=== PATIENT | male | born 1975 | race Caucasian/White ===

== ENCOUNTER 2016-06-21 08:36 | Emergency (ER) | payer BC ==
[2016-06-21] MEDS ORDERED: Aspirin 81 MG Tab.Chew PO ONE (08:41)
[2016-06-21] MEDS ORDERED: Sodium Chloride 0.9% 10 ML Syringe FLUSH PRN (08:41)
[2016-06-21] MEDS ORDERED: Sodium Chloride 0.9% 2.5 ML Syringe FLUSH PRN (08:41)
--- NOTE | 2016-06-21 08:43 | EDM.PDOC ---
[id number] Information: Reports: Patient History Limitations: Reports: No Limitations chest Pain Score (Numeric/FACES): 6 - Related Data Allergies Allergy/AdvReac Type Severity Reaction Status Date / Time No Known Allergies Allergy Verified 06/21/16 08:38 Home Meds: Home Meds Citalopram Hydrobromide [Celexa] 40 mg PO DAILY 06/21/16 [History] lamoTRIgine [Lamictal] 200 mg PO DAILY 06/21/16 [History] ED ROS GENERAL - Review of Systems Review Of Systems: See Below (History of present illness) ED EXAM, GENERAL - Physical Exam Exam: See Below (History of present illness) Course - Vital Signs Last Recorded V/S: Last Vital Signs Temp 36.6 C 06/21/16 12:20 Pulse 80 06/21/16 14:29 Resp 18 06/21/16 14:29 BP 124/78 06/21/16 14:29 Pulse Ox 97 06/21/16 14:29 - Orders/Labs/Meds Labs: Laboratory Tests 06/21/16 06/21/16 06/21/16 Range/Units 08:44 08:44 08:44 WBC 7.65 (4.0-11.0) K/uL RBC 5.41 (4.50-5.90) M/uL Hgb 16.2 (13.0-17.0) g/dL Hct 48.0 (38.0-50.0) % MCV 88.7 (80.0-98.0) fL MCH 29.9 (27.0-32.0) pg MCHC 33.8 (31.0-37.0) g/dL RDW Std Deviation 41.5 (28.0-62.0) fl RDW Coeff of Grant 13 (11.0-15.0) % Plt Count 219 (150-400) K/uL MPV 10.50 (7.40-12.00) fL Neut % (Auto) 64.4 (48.0-80.0) % Lymph % (Auto) 24.2 (16.0-40.0) % Ste[place]s % (Auto) 8.6 (0.0-15.0) % Eos % (Auto) 2.0 (0.0-7.0) % Baso % (Auto) 0.8 (0.0-1.5) % Neut # (Auto) 4.9 (1.4-5.7) K/uL Lymph # (Auto) 1.9 (0.6-2.4) K/uL Stearns # (Auto) 0.7 (0.0-0.8) K/uL Eos # (Auto) 0.2 (0.0-0.7) K/uL Baso # (Auto) 0.1 (0.0-0.1) K/uL Nucleated RBC % 0.0 /100WBC Nucleated RBCs # 0 K/uL Sodium 140 (136-146) mmol/L Potassium 4.1 (3.5-5.1) mmol/L Chloride 107 (98-110) mmol/L Carbon Dioxide 25 (21-31) mmol/L BUN 17 (6.0-23.0) mg/dL Creatinine 0.9 (0.6-1.5) mg/dL Est Cr Clr Drug Dosing 113.78 mL/min Estimated GFR (MDRD) > 60.0 ml/min Glucose 101 (60-110) mg/dL Calcium 9.3 (8.8-10.8) mg/dL Total Bilirubin 0.5 (0.1-1.5) mg/dL AST 24 (5-40) IU/L ALT 30 (8-54) IU/L Alkaline Phosphatase 65 (40-150) Troponin I < 0.10 (0.0-0.29) NG/ML Total Protein 6.8 (6.0-8.0) g/dL Albumin 4.2 (3.5-5.0) g/dL Globulin 2.6 (2.0-3.5) g/dL Albumin/Globulin Ratio 1.6 (1.3-2.8) Lipase (7-80) U/L Urine Color Urine Appearance Urine pH (5.0-8.0) Ur Specific [place] (1.001-1.035) Urine Protein (NEGATIVE) mg/dL Urine Glucose (UA) (NEGATIVE) mg/dL Urine Ketones (NEGATIVE) mg/dL Urine Occult Blood (NEGATIVE) Urine Nitrite (NEGATIVE) Urine Bilirubin (NEGATIVE) Urine Urobilinogen (<2.0) EU/dL Ur Leukocyte Esterase (NEGATIVE) Urine RBC (0-2/HPF) Urine WBC (0-5/HPF) Ur Epithelial Cells (NONE-FEW) Urine Bacteria (NEGATIVE) 06/21/16 06/21/16 Range/Units 08:56 09:54 WBC (4.0-11.0) K/uL RBC (4.50-5.90) M/uL Hgb (13.0-17.0) g/dL Hct (38.0-50.0) % MCV (80.0-98.0) fL MCH (27.0-32.0) pg MCHC (31.0-37.0) g/dL RDW Std Deviation (28.0-62.0) fl RDW Coeff of Grant (11.0-15.0) % Plt Count (150-400) K/uL MPV (7.40-12.00) fL Neut % (Auto) (48.0-80.0) % Lymph % (Auto) (16.0-40.0) % Stearns % (Auto) (0.0-15.0) % Eos % (Auto) (0.0-7.0) % Baso % (Auto) (0.0-1.5) % Neut # (Auto) (1.4-5.7) K/uL Lymph # (Auto) (0.6-2.4) K/uL Ste[place]s # (Auto) (0.0-0.8) K/uL Eos # (Auto) (0.0-0.7) K/uL Baso # (Auto) (0.0-0.1) K/uL Nucleated RBC % /100WBC Nucleated RBCs # K/uL Sodium (136-146) mmol/L Potassium (3.5-5.1) mmol/L Chloride (98-110) mmol/L Carbon Dioxide (21-31) mmol/L BUN (6.0-23.0) mg/dL Creatinine (0.6-1.5) mg/dL Est Cr Clr Drug Dosing mL/min Estimated GFR (MDRD) ml/min Glucose (60-110) mg/dL Calcium (8.8-10.8) mg/dL Total Bilirubin (0.1-1.5) mg/dL AST (5-40) IU/L ALT (8-54) IU/L Alkaline Phosphatase (40-150) Troponin I (0.0-0.29) NG/ML Total Protein (6.0-8.0) g/dL Albumin (3.5-5.0) g/dL Globulin (2.0-3.5) g/dL Albumin/Globulin Ratio (1.3-2.8) Lipase 22 (7-80) U/L Urine Color YELLOW Urine Appearance CLEAR Urine pH 6.0 (5.0-8.0) Ur Specific [place] 1.020 (1.001-1.035) Urine Protein NEGATIVE (NEGATIVE) mg/dL Urine Glucose (UA) NEGATIVE (NEGATIVE) mg/dL Urine Ketones NEGATIVE (NEGATIVE) mg/dL Urine Occult Blood NEGATIVE (NEGATIVE) Urine Nitrite NEGATIVE (NEGATIVE) Urine Bilirubin NEGATIVE (NEGATIVE) Urine Urobilinogen 0.2 (<2.0) EU/dL Ur Leukocyte Esterase NEGATIVE (NEGATIVE) Urine RBC NONE SEEN (0-2/HPF) Urine WBC NONE SEEN (0-5/HPF) Ur Epithelial Cells RARE (NONE-FEW) Urine Bacteria RARE (NEGATIVE) Meds: Medications Discontinued Medications Generic Name Dose Route Start Last Admin Trade Name Andrewq PRN Reason Stop Dose Admin Aspirin 324 mg 06/21/16 08:41 06/21/16 08:58 Aspirin PO 06/21/16 08:42 324 mg ONETIME ONE Administration Al Hydroxide/Mg Hydroxide 15 0 ml 06/21/16 11:46 06/21/16 11:58 ml/ Lidocaine HCl 5 ml PO 06/21/16 11:47 1 each ONETIME ONE Administration Iopamidol 100 ml 06/21/16 09:41 06/21/16 10:05 Isovue Multipack-370 (76%) IVPUSH 06/21/16 09:42 100 ml ONETIME STA Administration Ketorolac Tromethamine 30 mg 06/21/16 08:58 06/21/16 09:50 Toradol IVPUSH 06/21/16 08:59 30 mg ONETIME ONE Administration Sodium Chloride 10 ml 06/21/16 08:41 Saline Flush FLUSH ASDIRECTED PRN Keep Vein Open Sodium Chloride 2.5 ml 06/21/16 08:41 Saline Flush FLUSH ASDIRECTED PRN Keep Vein Open Departure - Departure Time of Disposition: 14:20 Disposition: Home, Self-Care 01 Condition: Good Clinical Impression: Gastritis Instructions: Gastritis, Adult, [id number], Heartburn, [id number] Referrals: PCP,None [Primary Care Provider] - Forms: ED Department Discharge Additional Instructions: Your findings today suggest that you have gastritis. This is irritation of the stomach commonly from excessively acidic environment in your stomach. Take Prilosec [id number] and avoid tobacco caffeine alcohol spicy foods and late night.. Followup with your DrVinayak in one day and return immediately for new severe or worsening symptoms ED HISTORY OF PRESENT ILLNESS - General Chief Complaint: Chest Pain Stated Complaint: CHEST PAIN Time Seen by Provider: 06/21/16 08:41 Source of Information: Reports: Patient History Limitations: Reports: No Limitations - History of Present Illness INITIAL COMMENTS - FREE TEXT/NARRATIVE: HISTORY AND PHYSICAL: History of present illness: [40-year-old male complaining of intermittent chest pain for 3 days and epigastric discomfort. Pain is not worse with breathing or movement. No nausea vomiting or diaphoresis. No exertional symptoms] Review of systems: As per history of present illness and below otherwise all systems reviewed and negative. Past medical history: As per history of present illness and as reviewed below otherwise noncontributory. Surgical history: As per history of present illness and as reviewed below otherwise noncontributory. Social history: No reported history of drug or alcohol abuse. Family history: As per history of present illness and as reviewed below otherwise noncontributory. Physical exam: HEENT: Atraumatic, normocephalic, pupils reactive, negative for conjunctival pallor or scleral icterus, mucous membranes moist, throat clear, neck supple, nontender, trachea midline. Lungs: Clear to auscultation, breath sounds equal bilaterally, chest nontender. Heart: S1S2, regular, negative for clicks, rubs, or JVD. Abdomen: Soft, nondistended, nontender. Negative for masses or hepatosplenomegaly. Negative for costovertebral tenderness. Pelvis: Stable nontender. Genitourinary: Deferred. Rectal: Deferred. Extremities: Atraumatic, negative for cords or calf pain. Neurovascular unremarkable. Neuro: Awake, alert, oriented. Cranial nerves grossly unremarkable. Cerebellum unremarkable. Motor and sensory unremarkable throughout. Exam nonfocal. Diagnostics: [] Therapeutics: [] Impression: [] Plan: [Negative workup well-appearing patient signs and symptoms consistent with gastritis. No clinical evidence of ACS/PE or dissection no further workup or treatment indicated patient agrees with outpatient follow-up with PCP strict return precautions given] Definitive disposition and diagnosis as appropriate pending reevaluation and review of above. - Related Data Allergies/ADRs: Allergies Allergy/AdvReac Type Severity Reaction Status Date / Time No Known Allergies Allergy Verified 06/21/16 08:38 Home Meds: Home Meds Citalopram Hydrobromide [Celexa] 40 mg PO DAILY 06/21/16 [History] lamoTRIgine [Lamictal] 200 mg PO DAILY 06/21/16 [History]
[2016-06-21] MEDS ORDERED: Ketorolac 30 MG/ML SDV IVPUSH ONE (08:58)
--- NOTE | 2016-06-21 09:26 | CR ---
EXAMINATION: Two-view chest (PA and Lateral views). HISTORY: Chest pain. FINDINGS: The trachea is midline. The cardiomediastinal silhouette is within normal limits. No pulmonary infil trates, effusions or pneumothorax. Osseous structures appear unremarkable. IMPRESSION: No acute cardiopulmonary process.
[2016-06-21 09:33] LABS: CHLORIDE,CL 107 mmol/L (98-110); SODIUM,NA 140 mmol/L (136-146)
[2016-06-21] MEDS ORDERED: Iopamidol 755 MG/ML 500 ML Multipack Bottle IVPUSH STA (09:41)
--- NOTE | 2016-06-21 11:11 | CT ---
EXAMINATION: CTA chest, abdomen, and pelvis HISTORY: Pain COMPARISON: None TECHNIQUE: Axial CT images obtained through the chest, abdomen and pelvis without contrast. Axial CT images obtained through the chest, abdomen, and pelvis following the administration of 100 mL of Is ovue-370. Coronal and sagittal reconstructions obtained. FINDINGS: Chest: The lungs are clear without focal consolidation. No pleural effusion or pneumothorax. Mild de pendent atelectasis. The thoracic aorta is normal in caliber. The main and central pulmonary arterie s appear patent. No mediastinal or hilar lymphadenopathy. The heart is normal in size without a lavon cardial effusion. The central airways are clear. Abdomen: Tiny hepatic cysts are noted. The spleen, adrenal glands, and pancreas appear normal. The g allbladder is normal. There is no bulky retroperitoneal lymphadenopathy or abdominal ascites. The kidneys enhance and function symmetrically without evidence of obstructive uropathy. The abdomin al aorta is normal in caliber. There are 2 right renal arteries noted. Pelvis: The large and small bowel are normal in caliber without evidence of obstruction. No focal pe ricolonic inflammation or stranding. Minimal diverticula noted. The appendix appears normal. No bulk y pelvic lymphadenopathy or free pelvic fluid. The urinary bladder is normal. No suspicious osseous abnormalities. IMPRESSION: 1. No acute findings demonstrated within the chest, abdomen, or pelvis. 2. The thoracic and abdominal aorta appear normal caliber and intact.
[2016-06-21] MEDS ORDERED: Alum Hydrox/Mag Hydrox/Simeth 15 ML, Lidocaine 2% 5 ML PO ONE ×2 (11:46)
[2016-06-21 14:43] VITALS: BP 124/78
== END 2016-06-21 14:29 | disposition home or self-care (01) ==
LOC: MW.ED 08:36
DX: K29.70 Gastritis, unspecified, without bleeding (principal); Z79.899 Other long term (current) drug therapy
CPT/HCPCS: 36415; 71010; 71275; 74177; 80053; 81001; 83690; 84484; 85025; 93005; 96374; 99285; A9270; J1885; Q9967; 99284

== ENCOUNTER 2016-11-04 07:10 | Emergency (ER) | payer BC ==
--- NOTE | 2016-11-04 07:37 | EDM.PDOC ---
ED HPI GENERAL MEDICAL PROBLEM - General Chief Complaint: Respiratory Problem Stated Complaint: ILL, COUGH Time Seen by Provider: 11/04/16 07:29 - History of Present Illness INITIAL COMMENTS - FREE TEXT/NARRATIVE: HISTORY AND PHYSICAL: History of present illness: The patient is a 41-year-old male with no stated pulmonary cardiac problems who presents with complaints of these 5 days of cough and spastic cough, lightheadedness, nasal congestion and drainage which worsened over the last 24- 36 hours. He said he was able to go to work up until yesterday and he had to call off because he felt so off balance due to the pressure in his ears and the sinus congestion. He's had no vomiting or diarrhea except some posttussive vomiting. He says he has no chest pain no abdominal pain only feels short of breath when he is having a coughing spasm. When he is just sitting and not coughing he is not short of breath. Patient says he is pushing hydration and has not used any xcnw-sfo-wwrxatt meds. Patient is a smoker. She says that he does have a lot of postnasal drip which triggers his cough. He does not have a sore throat or ear pain just feels pressure in his ears and the off-balance feeling. He has not fallen. Review of systems: As per history of present illness and below otherwise all systems reviewed and negative. Past medical history: As per history of present illness and as reviewed below otherwise noncontributory. Surgical history: As per history of present illness and as reviewed below otherwise noncontributory. Social history: No reported history of drug or alcohol abuse. Family history: As per history of present illness and as reviewed below otherwise noncontributory. Physical exam: General: Well-developed well-nourished man who is nontoxic and speaking clearly and easily in the ED. He has a nasal quality to his voice HEENT: Atraumatic, normocephalic, pupils reactive, negative for conjunctival pallor or scleral icterus, mucous membranes moist, throat clear, neck supple, nontender, trachea midline. There is no cervical adenopathy or nuchal rigidity and TMs are normal bilaterally, there is some mild sinus tenderness on palpation. Lungs: Clear to auscultation, breath sounds equal bilaterally, chest nontender. Wheezing or stridor no worker breathing Heart: S1S2, regular, negative for clicks, rubs, or JVD. Abdomen: Soft, nondistended, nontender. NABS. Pelvis: Stable nontender. Genitourinary: Deferred. Rectal: Deferred. Extremities: Atraumatic, negative for cords or calf pain. Neurovascular unremarkable. Neuro: Awake, alert, oriented. Cranial nerves II through XII unremarkable. Cerebellum unremarkable. Motor and sensory unremarkable throughout. Exam nonfocal. Diagnostics: Chest x-ray influenza swab orthostatic vitals Therapeutics: SPacer teaching Impression: Sinusitis/bronchitis Definitive disposition and diagnosis as appropriate pending reevaluation and review of above. - Related Data Allergies Allergy/AdvReac Type Severity Reaction Status Date / Time No Known Allergies Allergy Verified 11/04/16 07:27 Home Meds: Home Meds Citalopram Hydrobromide [Celexa] 40 mg PO DAILY 06/21/16 [History] lamoTRIgine [Lamictal] 200 mg PO DAILY 06/21/16 [History] Past Medical History Psychiatric History: Reports: Other (See Below) Other Psychiatric History: mood disorder - Infectious Disease History Infectious Disease History: Reports: Chicken Pox - Past Surgical History GI Surgical History: Reports: Hernia, Inguinal, Hernia Repair/Other Musculoskeletal Surgical History: Reports: Shoulder Surgery Social & Family History - Family History Family Medical History: Noncontributory - Tobacco Use Smoking Status *Q: Current Every Day Smoker Years of Tobacco use: 22 Packs/Tins Daily: 1 - Caffeine Use Caffeine Use: Reports: Soda - Recreational Drug Use Recreational Drug Use: No ED ROS GENERAL - Review of Systems Review Of Systems: ROS reveals no pertinent complaints other than HPI. ED EXAM, GENERAL - Physical Exam Exam: See Below (See dictation) Course - Vital Signs Last Recorded V/S: Last Vital Signs Temp 36.2 C 11/04/16 07:24 Pulse 69 11/04/16 07:24 Resp 20 11/04/16 07:24 BP 129/80 11/04/16 07:24 Pulse Ox 96 11/04/16 07:24 Orthostatic Blood Pressure [ 114/78 Standing] Orthostatic Blood Pressure [ 98/56 Sitting] Orthostatic Blood Pressure [ 124/71 Supine] - Orders/Labs/Meds Orders: Active Orders 24 hr Category Date Time Status Communication Order [RC] STAT Care 11/04/16 08:38 Ordered Orthostatic Vital Signs [RC] ASDIRECTED Care 11/04/16 07:34 Active Chest 2V [CR] Stat Exams 11/04/16 07:33 Taken Departure - Departure Time of Disposition: 08:39 Disposition: Home, Self-Care 01 Condition: Good Clinical Impression: Bronchitis Sinusitis Qualifiers: Sinusitis location: unspecified location Chronicity: acute Recurrence: not specified as recurrent Qualified Code(s): J01.90 - Acute sinusitis, unspecified - Discharge Information Referrals: PCP,None [Primary Care Provider] - Forms: ED Department Discharge Additional Instructions: The following information is given to patients seen in the emergency department who are being discharged to home. This information is to outline your options for follow-up care. We provide all patients seen in our emergency department with a follow-up referral. The need for follow-up, as well as the timing and circumstances, are variable depending upon the specifics of your emergency department visit. If you don't have a primary care physician on staff, we will provide you with a referral. We always advise you to contact your personal physician following an emergency department visit to inform them of the circumstance of the visit and for follow-up with them and/or the need for any referrals to a consulting specialist. The emergency department will also refer you to a specialist when appropriate. This referral assures that you have the opportunity for followup care with a specialist. All of these measure are taken in an effort to provide you with optimal care, which includes your followup. Under all circumstances we always encourage you to contact your private physician who remains a resource for coordinating your care. When calling for followup care, please make the office aware that this follow-up is from your recent emergency room visit. If for any reason you are refused follow-up, please contact the [facility] emergency department at and ask to speak to the emergency department charge nurse. [address] [place] [address] [facility] Primary care- Internal Medicine and Family [address] [address] Push hydration and rest. Please use all medications as prescribed and please connect with your provider at [facility] for follow-up in the next few days or one of our providers in our clinic. Return to ER as needed and as discussed. Please refrain from and/or stop smoking - My Orders Last 24 Hours: My Active Orders 11/04/16 07:33 Chest 2V [CR] Stat 11/04/16 07:34 Orthostatic Vital Signs [RC] ASDIRECTED 11/04/16 08:38 Communication Order [RC] STAT - Assessment/Plan Last 24 Hours: My Active Orders 11/04/16 07:33 Chest 2V [CR] Stat 11/04/16 07:34 Orthostatic Vital Signs [RC] ASDIRECTED 11/04/16 08:38 Communication Order [RC] STAT
[2016-11-04 09:09] VITALS: BP 106/75
--- NOTE | 2016-11-04 10:35 | CR ---
EXAM DATE: 11/04/16 PATIENT'S AGE: 41 Patient: ZACHARY SALDIVAR Facility: [place], [place] Site . Site : [id number] Study: XRay Chest [id number]/14/2017 8:24:54 AM Ordering Physician: Braulio Rodriguez Final Report: INDICATION: pain/shortness of breath INDICATION: Pain. Shortness of breath. TECHNIQUE: Chest 2 views. COMPARISON: 06/21/2016. FINDINGS: Cardiovascular and mediastinum: Heart size and vasculature are normal in caliber and appearance. Mediastinum is within normal limits. Lungs and pleural spaces: Lungs are clear. No sign of infiltrate or mass. No sign of pleural effusion. No pneumothorax. Bones and soft tissues: No significant findings. IMPRESSION: Lungs are clear. Dictated by Ganesh Hudson MD @ 11/04/2016 8:26:23 AM Dictated by: Ganesh Hudson MD @ 11/04/2016 08:26:30 (Electronic Signature) Report Signed by Proxy. ROMI
== END 2016-11-04 08:48 | disposition home or self-care (01) ==
LOC: MW.ED 07:10
DX: J40 Bronchitis, not specified as acute or chronic (principal); J01.90 Acute sinusitis, unspecified; F17.210 Nicotine dependence, cigarettes, uncomplicated; Z79.899 Other long term (current) drug therapy
CPT/HCPCS: 71020; 71020-26; 87804; 99283; 99284

== ENCOUNTER 2017-01-18 09:26 | Emergency (ER) | payer BC ==
--- NOTE | 2017-01-18 09:39 | EDM.PDOCBH ---
ED HPI GENERAL MEDICAL PROBLEM - General Chief Complaint: Behavioral/Psych Stated Complaint: MENTAL HEALTH Time Seen by Provider: 01/18/17 09:35 Source of Information: Reports: Patient History Limitations: Reports: No Limitations - History of Present Illness INITIAL COMMENTS - FREE TEXT/NARRATIVE: History of present illness: []An employee of [employer] called stating that Francisco would be arriving to the ER with suicidal intentions after she was unable to do a safety plan with him. He was brought in by a friend. Patient states he's suffer from bipolar disease for 25 years with 3 previous suicide attempts and has been on his meds without missing doses. He states they just aren't enough anymore. For the last 5-6 days, patient has been in bed and has been contemplating suicide by drinking antifreeze. His attempts in the past include using nitrogen gas in a confined space, overdose was multiple pills and cutting his wrist. Review of systems: As per history of present illness and below otherwise all systems reviewed and negative. Past medical history: As per history of present illness and as reviewed below otherwise noncontributory. Surgical history: As per history of present illness and as reviewed below otherwise noncontributory. Social history: No reported history of drug or alcohol abuse. Family history: As per history of present illness and as reviewed below otherwise noncontributory. Physical exam: General: Well developed, well nourished in NAD HEENT: , normocephalic, pupils reactive, negative for conjunctival pallor or scleral icterus, mucous membranes moist, throat clear, neck supple, nontender, trachea midline. Lungs: Clear to auscultation, breath sounds equal bilaterally, chest nontender. Heart: S1S2, regular, negative for clicks, rubs, or JVD. Abdomen: Soft, nondistended, nontender. Negative for masses or hepatosplenomegaly. Negative for costovertebral tenderness. Pelvis: Stable nontender. Genitourinary: Deferred. Rectal: Deferred. Extremities: Atraumatic, negative for cords or calf pain. Neurovascular unremarkable. Neuro: Awake, alert, oriented. Cranial nerves II through XII unremarkable. Cerebellum unremarkable. Motor and sensory unremarkable throughout. Exam nonfocal. Diagnostics: []Acute check screening labs done all negative Therapeutics: [] Impression: []Suicidal ideation Plan: []Transfer to [facility] from psychiatry accepts patient Definitive disposition and diagnosis as appropriate pending reevaluation and review of above. - Related Data Allergies Allergy/AdvReac Type Severity Reaction Status Date / Time No Known Allergies Allergy Verified 11/04/16 07:27 Home Meds: Home Meds Citalopram Hydrobromide [Celexa] 40 mg PO DAILY 06/21/16 [History] lamoTRIgine [Lamictal] 200 mg PO DAILY 06/21/16 [History] Past Medical History - Past Health History Medical/Surgical History: Denies Medical/Surgical History Psychiatric History: Reports: Other (See Below) Other Psychiatric History: mood disorder - Infectious Disease History Infectious Disease History: Reports: Chicken Pox - Past Surgical History GI Surgical History: Reports: Hernia, Inguinal, Hernia Repair/Other Musculoskeletal Surgical History: Reports: Shoulder Surgery Social & Family History - Family History Family Medical History: Noncontributory - Tobacco Use Smoking Status *Q: Current Every Day Smoker Years of Tobacco use: 22 Packs/Tins Daily: 1 - Caffeine Use Caffeine Use: Reports: Soda - Recreational Drug Use Recreational Drug Use: No ED ROS GENERAL - Review of Systems Review Of Systems: See Below (See history of present illness) ED EXAM, BEHAVIORAL HEALTH - Physical Exam Exam: See Below (See history of present illness) COURSE, BEHAVIORAL HEALTH COMP - Course Vital Signs: Last Vital Signs Temp 36.5 C 01/18/17 09:41 Pulse 68 01/18/17 10:24 Resp 16 01/18/17 10:24 BP 104/69 01/18/17 10:24 Pulse Ox 94 L 01/18/17 10:24 Orders, Labs, Meds: Active Orders 24 hr Category Date Time Status EKG Documentation Completion [RC] STAT Care 01/18/17 09:28 Active Involuntary Admission/Hold [RC] ASDIRECTED Care 01/18/17 09:44 Active FREE T3 [REF] Stat Lab 01/18/17 09:39 Received Laboratory Tests 01/18/17 01/18/17 01/18/17 Range/Units 09:38 09:38 09:39 WBC 6.74 (4.0-11.0) K/uL RBC 5.22 (4.50-5.90) M/uL Hgb 15.8 (13.0-17.0) g/dL Hct 46.2 (38.0-50.0) % MCV 88.5 (80.0-98.0) fL MCH 30.3 (27.0-32.0) pg MCHC 34.2 (31.0-37.0) g/dL RDW Std Deviation 42.1 (28.0-62.0) fl RDW Coeff of Grant 13 (11.0-15.0) % Plt Count 273 (150-400) K/uL MPV 10.00 (7.40-12.00) fL Neut % (Auto) 60.8 (48.0-80.0) % Lymph % (Auto) 28.8 (16.0-40.0) % Young % (Auto) 8.5 (0.0-15.0) % Eos % (Auto) 1.6 (0.0-7.0) % Baso % (Auto) 0.3 (0.0-1.5) % Neut # (Auto) 4.1 (1.4-5.7) K/uL Lymph # (Auto) 1.9 (0.6-2.4) K/uL Young # (Auto) 0.6 (0.0-0.8) K/uL Eos # (Auto) 0.1 (0.0-0.7) K/uL Baso # (Auto) 0.0 (0.0-0.1) K/uL Nucleated RBC % 0.0 /100WBC Nucleated RBCs # 0 K/uL Sodium (136-146) mmol/L Potassium (3.5-5.1) mmol/L Chloride (98-110) mmol/L Carbon Dioxide (21-31) mmol/L BUN (6.0-23.0) mg/dL Creatinine (0.6-1.5) mg/dL Est Cr Clr Drug Dosing mL/min Estimated GFR (MDRD) ml/min Glucose (60-110) mg/dL Calcium (8.8-10.8) mg/dL Magnesium (1.5-2.3) mEq/L Total Bilirubin (0.1-1.5) mg/dL AST (5-40) IU/L ALT (8-54) IU/L Alkaline Phosphatase (40-150) Total Protein (6.0-8.0) g/dL Albumin (3.5-5.0) g/dL Globulin (2.0-3.5) g/dL Albumin/Globulin Ratio (1.3-2.8) TSH 3rd Generation (0.47-5.0) uIU/mL Urine Color YELLOW Urine Appearance CLEAR Urine pH 6.5 (5.0-8.0) Ur Specific [place] 1.015 (1.001-1.035) Urine Protein NEGATIVE (NEGATIVE) mg/dL Urine Glucose (UA) NEGATIVE (NEGATIVE) mg/dL Urine Ketones NEGATIVE (NEGATIVE) mg/dL Urine Occult Blood NEGATIVE (NEGATIVE) Urine Nitrite NEGATIVE (NEGATIVE) Urine Bilirubin NEGATIVE (NEGATIVE) Urine Urobilinogen 0.2 (<2.0) EU/dL Ur Leukocyte Esterase NEGATIVE (NEGATIVE) Urine RBC 0-1 (0-2/HPF) Urine WBC 0-1 (0-5/HPF) Ur Epithelial Cells FEW (NONE-FEW) Urine Bacteria RARE (NEGATIVE) Salicylates (0-20) mg/dL Urine Opiates Screen NEGATIVE (NEGATIVE) Ur Oxycodone Screen NEGATIVE (NEGATIVE) Urine Methadone Screen NEGATIVE (NEGATIVE) Acetaminophen ug/mL Ur Barbiturates Screen NEGATIVE (NEGATIVE) Ur Phencyclidine Scrn NEGATIVE (NEGATIVE) Ur Amphetamine Screen NEGATIVE (NEGATIVE) U Methamphetamines Scrn NEGATIVE (NEGATIVE) U Benzodiazepines Scrn NEGATIVE (NEGATIVE) U Cocaine Metab Screen NEGATIVE (NEGATIVE) U Marijuana (THC) Screen NEGATIVE (NEGATIVE) Ethyl Alcohol mg/dL 01/18/17 Range/Units 09:39 WBC (4.0-11.0) K/uL RBC (4.50-5.90) M/uL Hgb (13.0-17.0) g/dL Hct (38.0-50.0) % MCV (80.0-98.0) fL MCH (27.0-32.0) pg MCHC (31.0-37.0) g/dL RDW Std Deviation (28.0-62.0) fl RDW Coeff of Grant (11.0-15.0) % Plt Count (150-400) K/uL MPV (7.40-12.00) fL Neut % (Auto) (48.0-80.0) % Lymph % (Auto) (16.0-40.0) % Young % (Auto) (0.0-15.0) % Eos % (Auto) (0.0-7.0) % Baso % (Auto) (0.0-1.5) % Neut # (Auto) (1.4-5.7) K/uL Lymph # (Auto) (0.6-2.4) K/uL Young # (Auto) (0.0-0.8) K/uL Eos # (Auto) (0.0-0.7) K/uL Baso # (Auto) (0.0-0.1) K/uL Nucleated RBC % /100WBC Nucleated RBCs # K/uL Sodium 139 (136-146) mmol/L Potassium 3.9 (3.5-5.1) mmol/L Chloride 106 (98-110) mmol/L Carbon Dioxide 25 (21-31) mmol/L BUN 15 (6.0-23.0) mg/dL Creatinine 0.8 (0.6-1.5) mg/dL Est Cr Clr Drug Dosing 118.75 mL/min Estimated GFR (MDRD) > 60.0 ml/min Glucose 94 (60-110) mg/dL Calcium 9.2 (8.8-10.8) mg/dL Magnesium 1.7 (1.5-2.3) mEq/L Total Bilirubin 0.4 (0.1-1.5) mg/dL AST 21 (5-40) IU/L ALT 32 (8-54) IU/L Alkaline Phosphatase 65 (40-150) Total Protein 6.9 (6.0-8.0) g/dL Albumin 4.2 (3.5-5.0) g/dL Globulin 2.7 (2.0-3.5) g/dL Albumin/Globulin Ratio 1.6 (1.3-2.8) TSH 3rd Generation 1.78 (0.47-5.0) uIU/mL Urine Color Urine Appearance Urine pH (5.0-8.0) Ur Specific [place] (1.001-1.035) Urine Protein (NEGATIVE) mg/dL Urine Glucose (UA) (NEGATIVE) mg/dL Urine Ketones (NEGATIVE) mg/dL Urine Occult Blood (NEGATIVE) Urine Nitrite (NEGATIVE) Urine Bilirubin (NEGATIVE) Urine Urobilinogen (<2.0) EU/dL Ur Leukocyte Esterase (NEGATIVE) Urine RBC (0-2/HPF) Urine WBC (0-5/HPF) Ur Epithelial Cells (NONE-FEW) Urine Bacteria (NEGATIVE) Salicylates < 5.0 (0-20) mg/dL Urine Opiates Screen (NEGATIVE) Ur Oxycodone Screen (NEGATIVE) Urine Methadone Screen (NEGATIVE) Acetaminophen < 3.0 ug/mL Ur Barbiturates Screen (NEGATIVE) Ur Phencyclidine Scrn (NEGATIVE) Ur Amphetamine Screen (NEGATIVE) U Methamphetamines Scrn (NEGATIVE) U Benzodiazepines Scrn (NEGATIVE) U Cocaine Metab Screen (NEGATIVE) U Marijuana (THC) Screen (NEGATIVE) Ethyl Alcohol < 10.0 mg/dL Departure - Departure Time of Disposition: 11:04 Disposition: DC/Tfer to Psych Hosp/Unit 65 Condition: Good Clinical Impression: Suicidal ideation Clinical Impression: (Ruled Out): Scalp laceration - Discharge Information Referrals: Peg Espino NP [Primary Care Provider] - Forms: ED Department Discharge Additional Instructions: The following information is given to patients seen in the emergency department who are being discharged to home. This information is to outline your options for follow-up care. We provide all patients seen in our emergency department with a follow-up referral. The need for follow-up, as well as the timing and circumstances, are variable depending upon the specifics of your emergency department visit. If you don't have a primary care physician on staff, we will provide you with a referral. We always advise you to contact your personal physician following an emergency department visit to inform them of the circumstance of the visit and for follow-up with them and/or the need for any referrals to a consulting specialist. The emergency department will also refer you to a specialist when appropriate. This referral assures that you have the opportunity for follow-up care with a specialist. All of these measure are taken in an effort to provide you with optimal care, which includes your follow-up. Under all circumstances we always encourage you to contact your private physician who remains a resource for coordinating your care. When calling for follow-up care, please make the office aware that this follow-up is from your recent emergency room visit. If for any reason you are refused follow-up, please contact the [facility] Emergency Department at and asked to speak to the emergency department charge nurse. - My Orders Last 24 Hours: My Active Orders 01/18/17 09:28 EKG Documentation Completion [RC] STAT 01/18/17 09:39 FREE T3 [REF] Stat 01/18/17 09:44 Involuntary Admission/Hold [RC] ASDIRECTED - Assessment/Plan Last 24 Hours: My Active Orders 01/18/17 09:28 EKG Documentation Completion [RC] STAT 01/18/17 09:39 FREE T3 [REF] Stat 01/18/17 09:44 Involuntary Admission/Hold [RC] ASDIRECTED
[2017-01-18 10:14] LABS: ACETAMINOPHEN < 3.0 ug/mL; CHLORIDE,CL 106 mmol/L (98-110); SODIUM,NA 139 mmol/L (136-146)
[2017-01-18 10:25] VITALS: BP 104/69
== END 2017-01-18 11:36 ==
LOC: MW.ED 09:26
DX: R45.851 Suicidal ideations (principal); F17.210 Nicotine dependence, cigarettes, uncomplicated; Z79.899 Other long term (current) drug therapy
CPT/HCPCS: 36415; 80053; 80305; 81001; 83735; 84443; 84481; 85025; 93005; 99285; G0480

== ENCOUNTER 2017-05-08 11:48 | Emergency (ER) | payer BC ==
--- NOTE | 2017-05-08 12:26 | EDM.PDOC ---
ED HPI GENERAL MEDICAL PROBLEM - General Chief Complaint: General Stated Complaint: ALL OVER PAIN Time Seen by Provider: 05/08/17 12:22 Source of Information: Reports: Patient History Limitations: Reports: No Limitations - History of Present Illness INITIAL COMMENTS - FREE TEXT/NARRATIVE: HISTORY AND PHYSICAL: []31-year-old male presents with injuries to his thumb on the left and right knee History of Present Illness: []Patient was injured yesterday when he was replacing some materials to the truck bed. As patient backed up he fell through open part of the truck bed hitting his thumb and his right knee was above the truck and twisted. Denies any loss of consciousness or other injuries. Review of Systems: As per history of present illness and below otherwise all systems reviewed and negative. Past medical history: As per history of present illness and as reviewed below otherwise noncontributory. Surgical history: As per history of present illness and as reviewed below otherwise noncontributory. Social history: No reported history of drug or alcohol abuse. Family history: As per history of present illness and as reviewed below otherwise noncontributory. Physical exam: Alert and oriented gentleman speaking in full sentences without any shortness of breath. Answering questions appropriately. HEENT: Atraumatic, normocehpalic, pupils reactive, negative for conjunctival pallor or scleral icterus, mucous membranes moist, throat clear, neck supple, nontender, trachea midline. Lungs: Clear to auscultation, breath sounds equal bilaterally, chest non tender. Heart: S1S2, regular, negative for clicks, rubs, or JVD. Abdomen: Soft, nondistended, nontender. Ecchymosis is noted to the left hip mild tenderness upon palpation for range of motion is noted. Negative for masses or hepatossplenmegaly. Negative for costovertebral tenderness. Pelvis: Stable nontender. Genitourinary: Deferred. Rectal: Deferred Extremities: Right knee has full range of motion complains of popping when he is walking, exquisite tenderness is noted with light palpation medial and below the patella, mild edema, negative for cords or calf pain. Neurovascular unremarkable. Neuro: Awake, alert, oriented. Cranial nerves II through XII unremarkable. Cerebellum unremarkable. Motor and sensory unremarkable throughout. Exam nonfocal. Discussed with patient his negative fractures on x-ray however expressed concern due to the nature of injury that he'll need to be followed up closely. We'll place on a referral to Dr. Jessie Jack for follow-up Diagnostics: [X-ray left thumb X-ray right knee X-ray left hip] Therapeutics: Crutches Knee immobilizer[] Impression: [Knee injury ] Plan: []Discharged to home Referred to orthopedics Over the Counter ibuprofen as discussed Definitive disposition and diagnosis as appropriate pending reevaluation and review of above. Onset: Sudden Duration: Day(s): (1) Location: Reports: Generalized r knee Pain Score (Numeric/FACES): 5 - Related Data Allergies Allergy/AdvReac Type Severity Reaction Status Date / Time No Known Allergies Allergy Verified 05/08/17 11:59 Home Meds: Home Meds DULoxetine [Cymbalta] 60 mg PO DAILY 05/08/17 [History] Divalproex Sodium [Depakote] 1,000 mg PO DAILY 05/08/17 [History] risperiDONE [Risperdal] 3 mg PO DAILY 05/08/17 [History] Past Medical History - Past Health History Medical/Surgical History: Denies Medical/Surgical History Psychiatric History: Reports: Bipolar, Other (See Below) Other Psychiatric History: mood disorder - Infectious Disease History Infectious Disease History: Reports: Chicken Pox - Past Surgical History GI Surgical History: Reports: Hernia, Inguinal, Hernia Repair/Other Musculoskeletal Surgical History: Reports: Shoulder Surgery Other Musculoskeletal Surgeries/Procedures:: R wrist place Social & Family History - Family History Family Medical History: Noncontributory Cardiac: Reports: CAD Other Dermatologic Family History: Mental Health - Tobacco Use Smoking Status *Q: Current Every Day Smoker Years of Tobacco use: 27 Packs/Tins Daily: 1 - Caffeine Use Caffeine Use: Reports: Coffee, Energy Drinks, Soda, Tea - Recreational Drug Use Recreational Drug Use: Yes Recreational Drug Type: Reports: Marijuana/Hashish Other Recreational Drug Type: uses whenever he can get it or someone he knows has it Recreational Drug Use Frequency: Weekly ED ROS GENERAL - Review of Systems Review Of Systems: ROS reveals no pertinent complaints other than HPI. ED EXAM, GENERAL - Physical Exam Exam: See Below (See dictation) Course - Vital Signs Last Recorded V/S: Last Vital Signs Temp 36.9 C 05/08/17 11:57 Pulse 75 03/18/18 11:57 Resp 20 05/08/17 11:57 BP 126/81 05/08/17 11:57 Pulse Ox 96 05/08/17 11:57 - Orders/Labs/Meds Orders: Active Orders 24 hr Category Date Time Status Immobilizer [RC] ASDIRECTED Care 05/08/17 14:03 Active Fingers Thumb Lt FA [CR] Stat Exams 05/08/17 12:21 Taken Hip Min 1V Lt [CR] Stat Exams 05/08/17 12:25 Taken Knee 3V Rt [CR] Stat Exams 05/08/17 12:22 Taken DME for Discharge [COMM] Stat Oth 05/08/17 14:02 Ordered Departure - Departure Time of Disposition: 14:11 Disposition: Home, Self-Care 01 Condition: Good Clinical Impression: Knee pain, acute Qualifiers: Laterality: right Qualified Code(s): M25.561 - Pain in right knee - Discharge Information Instructions: Knee Pain, Adult Referrals: Peg Espino NP [Primary Care Provider] - Jessie Jack MD [Physician] - Forms: ED Department Discharge Additional Instructions: The following information is given to patients seen in the emergency department who are being discharged to home. This information is to outline your options for follow-up care. We provide all patients seen in our emergency department with a follow-up referral. The need for follow-up, as well as the timing and circumstances, are variable depending upon the specifics of your emergency department visit. If you don't have a primary care physician on staff, we will provide you with a referral. We always advise you to contact your personal physician following an emergency department visit to inform them of the circumstance of the visit and for follow-up with them and/or the need for any referrals to a consulting specialist. The emergency department will also refer you to a specialist when appropriate. This referral assures that you have the opportunity for followup care with a specialist. All of these measure are taken in an effort to provide you with optimal care, which includes your followup. Under all circumstances we always encourage you to contact your private physician who remains a resource for coordinating your care. When calling for followup care, please make the office aware that this follow-up is from your recent emergency room visit. If for any reason you are refused follow-up, please contact the [facility] emergency department at and asked to speak to the emergency department charge nurse. Immobilizer for knee Crutches Referral to Dr. Jessie Jack [facility] [address] [place] [address], [address] [place] [address] - My Orders Last 24 Hours: My Active Orders 05/08/17 12:21 Fingers Thumb Lt FA [CR] Stat 05/08/17 12:22 Knee 3V Rt [CR] Stat 05/08/17 12:25 Hip Min 1V Lt [CR] Stat 05/08/17 14:02 DME for Discharge [COMM] Stat 05/08/17 14:03 Immobilizer [RC] ASDIRECTED - Assessment/Plan Last 24 Hours: My Active Orders 05/08/17 12:21 Fingers Thumb Lt FA [CR] Stat 05/08/17 12:22 Knee 3V Rt [CR] Stat 05/08/17 12:25 Hip Min 1V Lt [CR] Stat 05/08/17 14:02 DME for Discharge [COMM] Stat 05/08/17 14:03 Immobilizer [RC] ASDIRECTED
[2017-05-08 14:36] VITALS: BP 123/70
--- NOTE | 2017-05-09 16:54 | CR ---
EXAM DATE: 05/08/17 PATIENT'S AGE: 41 Patient: ZACHARY SALDIVAR Facility: [place], [place] Site . Site : 1975 Study: XRay Knee Right [id number]/18/2018 12:55:52 PM Ordering Physician: Doctor Gonzalez Final Report: INDICATION: Pain. TECHNIQUE: Three views of the right knee. COMPARISON: None. IMPRESSION: No appreciable joint effusion or loose intra-articular body. No fracture, subluxation or dislocation. Dictated by Dmitri Wilkinson MD @ 05/08/2017 1:05:45 PM Dictated by: Dmitri Wilkinson MD @ 05/08/2017 13:05:51 (Electronic Signature) Report Signed by Proxy. ROMI
--- NOTE | 2017-05-09 16:59 | CR ---
EXAM DATE: 05/08/17 PATIENT'S AGE: 41 Patient: ZACHARY SALDIVAR Facility: [place], [place] Site . Site : 1975 Study: XRay Extremity Left thumb [id number]/18/2018 12:59:29 PM Ordering Physician: Doctor Gonzalez Final Report: INDICATION: injury 3 views of the left thumb Findings: There is no acute fracture, malalignment or degenerative change. Soft tissues are radiographically unremarkable. Impression: Unremarkable radiographs of the left thumb. Dictated by: Saul Gross MD @ 05/08/2017 13:06:05 (Electronic Signature) Report Signed by Proxy. ROMI
--- NOTE | 2017-05-09 17:00 | CR ---
EXAM DATE: 05/08/17 PATIENT'S AGE: 41 Patient: ZACHARY SALDIVAR Facility: [place], [place] Site . Site : 1975 Study: XRay Hip Left [id number]/18/2018 1:01:03 PM Ordering Physician: Doctor Gonzalez Final Report: INDICATION: Injury. TECHNIQUE: Portable AP supine view of the left hip. COMPARISON: None. IMPRESSION: Limited study as only a single view was obtained. Single image of the left hip demonstrates no appreciable fracture and normal alignment of the left hip joint. Dictated by Dmitri Wilkinson MD @ 05/08/2017 1:10:54 PM Dictated by: Dmitri Wilkinson MD @ 05/08/2017 13:11:08 (Electronic Signature) Report Signed by Proxy. ROMI
== END 2017-05-08 14:30 | disposition home or self-care (01) ==
LOC: MW.ED 11:48
DX: S89.91XA Unspecified injury of right lower leg, initial encounter (principal); S69.92XA Unspecified injury of left wrist, hand and finger(s), initial encounter; S70.02XA Contusion of left hip, initial encounter; Z79.899 Other long term (current) drug therapy; F17.210 Nicotine dependence, cigarettes, uncomplicated; W18.00XA Striking against unspecified object with subsequent fall, initial encounter
CPT/HCPCS: 73140-26-FA; 73140-FA; 73501-26-LT; 73501-LT; 73562-26-RT; 73562-RT; 99283

== ENCOUNTER 2018-07-30 20:10 | Emergency (ER) | payer BC ==
[2018-07-30] MEDS ORDERED: Sodium Chloride 0.9% 2.5 ML Syringe FLUSH PRN (20:26)
[2018-07-30] MEDS ORDERED: Sodium Chloride 0.9% 10 ML Syringe FLUSH PRN (20:26)
[2018-07-30] MEDS ORDERED: diphenhydrAMINE 50 MG/ML SDV IVPUSH ONE (20:27)
[2018-07-30] MEDS ORDERED: Sodium Chloride 0.9% 1,000 ML IV ONE (20:27)
[2018-07-30] MEDS ORDERED: methylPREDNISolone Sodium Succinate 125 MG/2 ML SDV IVPUSH ONE (20:27)
[2018-07-30] MEDS ORDERED: Ketorolac 30 MG/ML SDV IVPUSH ONE (20:27)
--- NOTE | 2018-07-30 20:32 | EDM.PDOC ---
ED HPI GENERAL MEDICAL PROBLEM - General Chief Complaint: Bite:Animal, Insect Stated Complaint: BUG BITE/STING ON FACE Time Seen by Provider: 07/30/18 20:19 - History of Present Illness INITIAL COMMENTS - FREE TEXT/NARRATIVE: HISTORY AND PHYSICAL: History of present illness: The patient is a healthy 42-year-old male who presents with pain and swelling with redness to the right side of the space that started this morning when he woke up. The patient said that when he went to bed last night he was having a normal evening and had no history of trauma or systemic complaints and when he woke up he noticed a little bit of swelling and redness underneath his right eye which has worsened throughout the day. It is not itchy but he feels very swollen and full and there is pressure in this region and he noticed that he had a swollen gland in his neck on the right. He has no erythema or pain no nasal drainage no sinus drainage or sinus pain or pressure and no headache. He' s had no fever chills nausea vomiting today and has no other systemic complaints and no other lesions bites or rashes to the rest of his body. The patient says that he took one dose of ibuprofen 600 mg and it did not help and is concerned about the pain in the pressure. He did not take any other meds such as Benadryl. He doesn't recall being bitten by something but that is what his concern is. Review of systems: As per history of present illness and below otherwise all systems reviewed and negative. Past medical history: As per history of present illness and as reviewed below otherwise noncontributory. Surgical history: As per history of present illness and as reviewed below otherwise noncontributory. Social history: No reported history of drug or alcohol abuse. Family history: As per history of present illness and as reviewed below otherwise noncontributory. Physical exam: General: Well-developed well-nourished man who is nontoxic and vital signs were noted by me. He speaking clearly and easily in the ED. HEENT: Atraumatic, normocephalic, pupils reactive, negative for conjunctival pallor or scleral icterus, mucous membranes moist, throat clear, neck supple, nontender, trachea midline. There is some mild anterior cervical adenopathy with one specific lymph node on the right that is mobile and mildly tender but no posterior adenopathy or nuchal rigidity, the patient has an upper plate denture in place and no other teeth are seen in the mouth and there is no oropharyngeal swelling or lesions appreciated. There is visible soft tissue swelling erythema and warmth originating at the infraorbital area on the right and extending downward which is ill-defined and there is no fluctuance or soft tissue defect appreciated. There is no crepitus or bony deformity appreciated and there is no bony tenderness. The turbinates are boggy bilaterally. TMs are normal with slight dullness bilaterally. When I palpate the soft tissue area it feels somewhat indurated and there is tenderness with this. This area does not extend laterally to the preauricular area. Lungs: Clear to auscultation, breath sounds equal bilaterally, chest nontender. Heart: S1S2, regular rate and rhythm no overt murmurs Abdomen: Soft, nondistended, nontender. Negative for masses or hepatosplenomegaly. NABS Pelvis: Deferred Genitourinary: Deferred. Rectal: Deferred. Extremities: Atraumatic, negative for cords or calf pain. Neurovascular unremarkable. Full range of motion without defects or deficits Neuro: Awake, alert, oriented. Cranial nerves II through XII unremarkable. Cerebellum unremarkable. Motor and sensory unremarkable throughout. Exam nonfocal. Diagnostics: CBC CMP lactic acid CT scan of the soft tissue face Therapeutics: IV fluids Benadryl Solu-Medrol Toradol, Augmentin She is aware of all testing results and care plan for home. Impression: Cellulitis of face, inflammatory response Definitive disposition and diagnosis as appropriate pending reevaluation and review of above. Right Face/Facial Pain Score (Numeric/FACES): 4 - Related Data Allergies Allergy/AdvReac Type Severity Reaction Status Date / Time No Known Allergies Allergy Verified 07/30/18 20:18 Home Meds: Home Meds DULoxetine [Cymbalta] 60 mg PO DAILY 05/08/17 [History] Divalproex Sodium [Depakote] 1,500 mg PO DAILY 05/08/17 [History] Past Medical History - Past Health History Medical/Surgical History: Denies Medical/Surgical History Psychiatric History: Reports: Bipolar, Other (See Below) Other Psychiatric History: mood disorder - Infectious Disease History Infectious Disease History: Reports: Chicken Pox - Past Surgical History GI Surgical History: Reports: Hernia, Inguinal, Hernia Repair/Other Musculoskeletal Surgical History: Reports: Shoulder Surgery Other Musculoskeletal Surgeries/Procedures:: R wrist place Social & Family History - Family History Family Medical History: Noncontributory Cardiac: Reports: CAD Other Dermatologic Family History: Mental Health - Tobacco Use Smoking Status *Q: Current Every Day Smoker Years of Tobacco use: 30 Packs/Tins Daily: 0.1 - Caffeine Use Caffeine Use: Reports: Coffee, Energy Drinks, Soda, Tea - Recreational Drug Use Recreational Drug Use: Yes Drug Use in Last 12 Months: Yes Recreational Drug Type: Reports: Marijuana/Hashish Recreational Drug Use Frequency: Weekly ED ROS GENERAL - Review of Systems Review Of Systems: ROS reveals no pertinent complaints other than HPI. ED EXAM, ANIMAL BITE - Physical Exam Exam: See Below (See dictation) Course - Vital Signs Last Recorded V/S: Last Vital Signs Temp 36.4 C 07/30/18 20:16 Pulse 105 H 07/30/18 20:16 Resp BP 113/73 07/30/18 20:16 Pulse Ox 97 07/30/18 20:16 - Orders/Labs/Meds Orders: Active Orders 24 hr Category Date Time Status Sodium Chloride 0.9% [Saline Flush] Med 07/30/18 20:26 Active 10 ml FLUSH ASDIRECTED PRN Sodium Chloride 0.9% [Saline Flush] Med 07/30/18 20:26 Active 2.5 ml FLUSH ASDIRECTED PRN Saline Lock Insert [OM.PC] Stat Oth 07/30/18 20:25 Ordered Medication Orders Sodium Chloride (Saline Flush) 10 ml FLUSH ASDIRECTED PRN PRN Reason: Keep Vein Open Last Admin: 07/30/18 20:49 Dose: 10 ml Sodium Chloride (Saline Flush) 2.5 ml FLUSH ASDIRECTED PRN PRN Reason: Keep Vein Open Last Admin: 07/30/18 20:49 Dose: 2.5 ml Labs: Laboratory Tests 07/30/18 07/30/18 07/30/18 Range/Units 20:45 20:45 20:45 WBC 10.94 (4.0-11.0) K/uL RBC 5.11 (4.50-5.90) M/uL Hgb 15.6 (13.0-17.0) g/dL Hct 46.5 (38.0-50.0) % MCV 91.0 (80.0-98.0) fL MCH 30.5 (27.0-32.0) pg MCHC 33.5 (31.0-37.0) g/dL RDW Std Deviation 44.4 (28.0-62.0) fl RDW Coeff of Grant 13 (11.0-15.0) % Plt Count 210 (150-400) K/uL MPV 10.80 (7.40-12.00) fL Neut % (Auto) 82.1 H (48.0-80.0) % Lymph % (Auto) 9.2 L (16.0-40.0) % Davison % (Auto) 8.1 (0.0-15.0) % Eos % (Auto) 0.4 (0.0-7.0) % Baso % (Auto) 0.2 (0.0-1.5) % Neut # (Auto) 9.0 H (1.4-5.7) K/uL Lymph # (Auto) 1.0 (0.6-2.4) K/uL Davison # (Auto) 0.9 H (0.0-0.8) K/uL Eos # (Auto) 0.0 (0.0-0.7) K/uL Baso # (Auto) 0.0 (0.0-0.1) K/uL Nucleated RBC % 0.0 /100WBC Nucleated RBCs # 0 K/uL Lactate 1.1 (0.20-2.00) mmol/L Sodium 137 (136-148) mmol/L Potassium 3.8 (3.5-5.1) mmol/L Chloride 101 (98-107) mmol/L Carbon Dioxide 24.4 (21.0-32.0) mmol/L BUN 8 (7.0-18.0) mg/dL Creatinine 0.8 (0.8-1.3) mg/dL Est Cr Clr Drug Dosing 125.47 mL/min Estimated GFR (MDRD) > 60.0 ml/min Glucose 99 (74-106) mg/dL Calcium 8.5 (8.5-10.1) mg/dL Total Bilirubin 0.5 (0.2-1.0) mg/dL AST 19 (15-37) IU/L ALT 26 (14-63) IU/L Alkaline Phosphatase 73 (46-116) U/L Total Protein 6.6 (6.4-8.2) g/dL Albumin 3.4 (3.4-5.0) g/dL Globulin 3.2 (2.6-4.0) g/dL Albumin/Globulin Ratio 1.1 (0.9-1.6) Meds: Medications Generic Name Dose Route Start Last Admin Trade Name Andrewq PRN Reason Stop Dose Admin Sodium Chloride 10 ml 07/30/18 20:26 07/30/18 20:49 Saline Flush FLUSH 10 ml ASDIRECTED PRN Administration Keep Vein Open Sodium Chloride 2.5 ml 07/30/18 20:26 07/30/18 20:49 Saline Flush FLUSH 2.5 ml ASDIRECTED PRN Administration Keep Vein Open Discontinued Medications Generic Name Dose Route Start Last Admin Trade Name Andrewq PRN Reason Stop Dose Admin Diphenhydramine HCl 50 mg 07/30/18 20:27 07/30/18 20:48 Benadryl IVPUSH 07/30/18 20:28 50 mg ONETIME ONE Administration Sodium Chloride 1,000 mls @ 999 mls/hr 07/30/18 20:27 07/30/18 20:48 Normal Saline IV 07/30/18 21:27 999 mls/hr STAT ONE Administration Iopamidol 100 ml 07/30/18 21:51 07/30/18 21:54 Isovue-370 (76%) IVPUSH 07/30/18 21:52 100 ml ONETIME ONE Administration Ketorolac Tromethamine 30 mg 07/30/18 20:27 07/30/18 20:48 Toradol IVPUSH 07/30/18 20:28 30 mg ONETIME ONE Administration Methylprednisolone Sodium Succinate 125 mg 07/30/18 20:27 07/30/18 20:48 Solu-Medrol IVPUSH 07/30/18 20:28 125 mg ONETIME ONE Administration Departure - Departure Time of Disposition: 22:47 Disposition: Home, Self-Care 01 Condition: Good Clinical Impression: Cellulitis Qualifiers: Site of cellulitis: face Qualified Code(s): L03.211 - Cellulitis of face - Discharge Information Referrals: Peg Espino DIRECTOR DRUG [Primary Care Provider] - Forms: ED Department Discharge Additional Instructions: The following information is given to patients seen in the emergency department who are being discharged to home. This information is to outline your options for follow-up care. We provide all patients seen in our emergency department with a follow-up referral. The need for follow-up, as well as the timing and circumstances, are variable depending upon the specifics of your emergency department visit. If you don't have a primary care physician on staff, we will provide you with a referral. We always advise you to contact your personal physician following an emergency department visit to inform them of the circumstance of the visit and for follow-up with them and/or the need for any referrals to a consulting specialist. The emergency department will also refer you to a specialist when appropriate. This referral assures that you have the opportunity for followup care with a specialist. All of these measure are taken in an effort to provide you with optimal care, which includes your followup. Under all circumstances we always encourage you to contact your private physician who remains a resource for coordinating your care. When calling for followup care, please make the office aware that this follow-up is from your recent emergency room visit. If for any reason you are refused follow-up, please contact the [facility] emergency department at and ask to speak to the emergency department charge nurse. [facility] Primary care- Internal Medicine and Family [address] [id number] Use [id number] Benadryl 50 mg every 6 hours for the next 24-36 hours and then every 6 hours as needed for swelling and redness. Please fill your prescription and take all medications as directed. Call and schedule a follow- up appointment in our clinic and return here as needed and as discussed - My Orders Last 24 Hours: My Active Orders 07/30/18 20:25 Saline Lock Insert [OM.PC] Stat 07/30/18 20:26 Sodium Chloride 0.9% [Saline Flush] 10 ml FLUSH ASDIRECTED PRN Sodium Chloride 0.9% [Saline Flush] 2.5 ml FLUSH ASDIRECTED PRN - Assessment/Plan Last 24 Hours: My Active Orders 07/30/18 20:25 Saline Lock Insert [OM.PC] Stat 07/30/18 20:26 Sodium Chloride 0.9% [Saline Flush] 10 ml FLUSH ASDIRECTED PRN Sodium Chloride 0.9% [Saline Flush] 2.5 ml FLUSH ASDIRECTED PRN
[2018-07-30 21:23] LABS: CHLORIDE,CL 101 mmol/L (98-107); SODIUM,NA 137 mmol/L (136-148)
[2018-07-30] MEDS ORDERED: Iopamidol 755 Mg/ML 100 ML Bottle IVPUSH ONE (21:51)
--- NOTE | 2018-07-30 22:31 | CT ---
INDICATION: Facial swelling. COMPARISON: None available TECHNIQUE: CT examination of the facial bones is performed with the uneventful intravenous administration of 100 cc of Isovue 370 using spiral technique. Two and 0.8-mm thick axial, coronal and sagittal sections were obtained from the data. Please note that all CT scans at this facility use dose modulation, iterative reconstruction, and/or weight-based dosing when appropriate to reduce radiation dose to as low as reasonably achievable. FINDINGS: There is mild swelling of the subcutaneous tissues in the right maxillary region extending into the area of the right inferior eyelid. There is no sign of any associated abscess. The findings are that of cellulitis. There is no sign of associated osseous destruction of the anterior wall of the right maxillary sinus. There is no sign of facial fracture on today`s study. The orbits, zygomatic arches, nasal bones, maxillae, and mandible are normal in appearance. The paranasal sinuses are clear. The mastoids are clear. The orbital soft tissue structures are unremarkable. The airway structures are normal in appearance. IMPRESSION: Cellulitis of the right maxillary subcutaneous tissues with no sign of any abscess or associated osteomyelitis. No other abnormality seen in the facial bones. Please note that all CT scans at this facility use dose modulation, iterative reconstruction, and/or weight-based dosing when appropriate to reduce radiation dose to as low as reasonably achievable. Dictated by Vishal Reynoso MD @ Jul 30 2018 10:24PM Signed by Dr. Vishal Reynoso @ Jul 30 2018 10:29PM
[2018-07-30 22:48] VITALS: BP 127/76
[2018-07-30] MEDS ORDERED: Amoxicillin/Clavulanate K 875-125 MG Tab PO ONE (22:48)
== END 2018-07-30 22:58 | disposition home or self-care (01) ==
LOC: MW.ED 20:10
DX: L03.211 Cellulitis of face (principal); F17.210 Nicotine dependence, cigarettes, uncomplicated; Z79.899 Other long term (current) drug therapy
CPT/HCPCS: 36415; 70487; 80053; 83605; 85025; 96361; 96374; 96375; 99284; A9270; J1200; J1885; J2930; J7040; Q9967

== ENCOUNTER 2018-11-15 13:37 | Emergency (ER) | payer BC ==
[2018-11-15 13:54] VITALS: BP 142/106; PULSE 108
--- NOTE | 2018-11-15 13:57 | EDM.PDOC ---
ED HPI GENERAL MEDICAL PROBLEM - General Chief Complaint: General Stated Complaint: medical clearance Time Seen by Provider: 11/15/18 13:39 Source of Information: Reports: Patient History Limitations: Reports: No Limitations - History of Present Illness INITIAL COMMENTS - FREE TEXT/NARRATIVE: HISTORY AND PHYSICAL: History of present illness: Patient is a 43-year-old male who presents to the emergency room with loss enforcement for medical clearance. Patient states he tripped and fell hitting his right knee and foot on a rock. Denies hitting his head nor any LOC. He currently offers no complaints or concerns and does not wish to have any further medical screening or examination. Patient denies any fever, chills, headache, change in vision, syncope or near syncope. Denies any chest pain, back pain, shortness of breath or cough. Denies any GI or symptoms. Patient has been eating and drinking appropriately. Review of systems: As per history of present illness and below otherwise all systems reviewed and negative. Past medical history: As per history of present illness and as reviewed below otherwise noncontributory. Surgical history: As per history of present illness and as reviewed below otherwise noncontributory. Social history: See social history for further information Family history: As per history of present illness and as reviewed below otherwise noncontributory. Physical exam: General: Well-developed and well-nourished 43-year-old male. Alert and oriented. Agitated, nontoxic appearing and in no acute distress. HEENT: Atraumatic, normocephalic, pupils equal and reactive bilaterally, negative for conjunctival pallor or scleral icterus, mucous membranes moist, trachea midline. No drooling or trismus noted. No meningeal signs. No hot potato voice noted. Lungs: Clear to auscultation, breath sounds equal bilaterally, chest nontender. Heart: S1S2, regular rate and rhythm without overt murmur Abdomen: Soft, nondistended, nontender. Skin: Intact, warm, dry. No lesions or rashes noted. Extremities: Atraumatic, moves all extremities per self without difficulty or deficits, negative for cords or calf pain. Neurovascular unremarkable. Neuro: Awake, alert, oriented. Cranial nerves II through XII unremarkable. Cerebellum unremarkable. Motor and sensory unremarkable throughout. Exam nonfocal. Notes: Patient declines the need for any diagnostics L though will have a blood sugar check. Vital signs are stable. Glucose is within normal limits. Supportive care measures were reviewed and discussed. Voices understanding and is agreeable to plan of care. Denies any further questions or concerns at this time. Diagnostics: Blood Glucose Therapeutics: None Prescription: None Impression: Encounter for medical clearance Plan: 1. Follow-up with their primary care provider as we discussed. 2. Return to the ED as needed and as discussed. Definitive disposition and diagnosis as appropriate pending reevaluation and review of above. Left Foot Pain Score (Numeric/FACES): 5 - Related Data Allergies Allergy/AdvReac Type Severity Reaction Status Date / Time No Known Allergies Allergy Verified 11/15/18 13:54 Home Meds: Home Meds DULoxetine [Cymbalta] 60 mg PO DAILY 05/08/17 [History] Divalproex Sodium [Depakote] 1,500 mg PO DAILY 05/08/17 [History] Past Medical History - Past Health History Medical/Surgical History: Denies Medical/Surgical History Psychiatric History: Reports: Bipolar, Other (See Below) Other Psychiatric History: mood disorder - Infectious Disease History Infectious Disease History: Reports: Chicken Pox - Past Surgical History GI Surgical History: Reports: Hernia, Inguinal, Hernia Repair/Other Musculoskeletal Surgical History: Reports: Shoulder Surgery Other Musculoskeletal Surgeries/Procedures:: R wrist place Social & Family History - Family History Family Medical History: Noncontributory Cardiac: Reports: CAD Other Dermatologic Family History: Mental Health - Caffeine Use Caffeine Use: Reports: Coffee, Energy Drinks, Soda, Tea ED ROS GENERAL - Review of Systems Review Of Systems: ROS reveals no pertinent complaints other than HPI. ED EXAM, GENERAL - Physical Exam Exam: See Below (See dictation) Course - Vital Signs Last Recorded V/S: Last Vital Signs Temp 98.3 F 11/15/18 13:52 Pulse 108 H 11/15/18 13:52 Resp 18 11/15/18 13:52 BP 142/106 H 11/15/18 13:52 Pulse Ox 96 11/15/18 13:52 - Orders/Labs/Meds Orders: Active Orders 24 hr Category Date Time Status Blood Glucose Check, Bedside [RC] ONETIME Care 11/15/18 13:54 Ordered Departure - Departure Time of Disposition: 13:56 Disposition: Home, Self-Care 01 Clinical Impression: Encounter for medical screening examination - Discharge Information Instructions: Medical Screening Exam Referrals: Peg Espino NP [Primary Care Provider] - Forms: ED Department Discharge Additional Instructions: The following information is given to patients seen in the emergency department who are being discharged to home. This information is to outline your options for follow-up care. We provide all patients seen in our emergency department with a follow-up referral. The need for follow-up, as well as the timing and circumstances, are variable depending upon the specifics of your emergency department visit. If you don't have a primary care physician on staff, we will provide you with a referral. We always advise you to contact your personal physician following an emergency department visit to inform them of the circumstance of the visit and for follow-up with them and/or the need for any referrals to a consulting specialist. The emergency department will also refer you to a specialist when appropriate. This referral assures that you have the opportunity for follow-up care with a specialist. All of these measure are taken in an effort to provide you with optimal care, which includes your follow-up. Under all circumstances we always encourage you to contact your private physician who remains a resource for coordinating your care. When calling for follow-up care, please make the office aware that this follow-up is from your recent emergency room visit. If for any reason you are refused follow-up, please contact the [facility] Emergency Department at and asked to speak to the emergency department charge nurse. [facility] [address] [place] [id number] [address] 1. Follow-up with their primary care provider as we discussed. 2. Return to the ED as needed and as discussed. - My Orders Last 24 Hours: My Active Orders 11/15/18 13:54 Blood Glucose Check, Bedside [RC] ONETIME - Assessment/Plan Last 24 Hours: My Active Orders 11/15/18 13:54 Blood Glucose Check, Bedside [RC] ONETIME
== END 2018-11-15 14:08 | disposition home or self-care (01) ==
LOC: MW.ED 13:37
DX: Z02.89 Encounter for other administrative examinations (principal); F31.9 Bipolar disorder, unspecified; Z79.899 Other long term (current) drug therapy
CPT/HCPCS: 82962; 99283